=== PATIENT | male | born 1985 | race Caucasian/White ===

== ENCOUNTER 2022-03-01 21:38 | Emergency (ER) | payer SELFPAY ==
[2022-03-01 22:11] LABS: HEMOGLOBIN 15.9 gm/dl (14.0-17.5); RED BLOOD COUNT 5.18 M/UL (4.20-5.50); WHITE BLOOD COUNT 10.5 K/UL (4.5-11.0)
[2022-03-01 22:53] LABS: BUN/CREATININE RATIO 8 (0-10)
== END 2022-03-02 00:34 | disposition home or self-care (01) ==
LOC: ER1 21:38
DX: R07.89 Other chest pain (principal)
CPT/HCPCS: 71045; 80053; 82550; 82553; 84484; 85025; 93005; 99285